=== PATIENT | female | born 1975 | race Caucasian/White ===

== ENCOUNTER → 2017-07-17 | Outpatient (CLI) | payer OTHER ==
--- NOTE | 2017-07-18 07:31 | MM ---
Reason for exam: screening (asymptomatic). Baseline mammogram. History: Patient is nulliparous. Family history of breast cancer in paternal aunt at age 50, breast cancer in paternal aunt at age 40, and breast cancer in grandmother. Took hormonal contraceptives beginning at age 20. Physical Findings: Nurse did not find any significant physical abnormalities on exam. MG 3D Screening Mammo W/Cad Bilateral CC and MLO view(s) were taken. The breast tissue is heterogeneously dense. This may lower the sensitivity of mammography. Finding #1: There is a 14 mm circumscribed round mass in the upper quadrant, posterior position of the left breast. Finding #2: There are typically benign round, linear calcifications in the left breast. Left 18mm oval lesion middle posterior position upper inner quadrant with adjacent 4mm lesion. Right 11mm oval lesion posterior position outer lower quadrant. These results were verbally communicated with the patient and result sheet given to the patient on 07/17/17. ASSESSMENT: Incomplete: need additional imaging evaluation, BI-RAD 0 RECOMMENDATION: Ultrasound of both breasts. (right 12:00, 6:00-9:00) (left 9:00-12:00)
--- NOTE | 2017-07-18 07:52 | USB ---
Reason for exam: additional evaluation requested from abnormal screening. History: Patient is nulliparous. Family history of breast cancer in paternal aunt at age 50, breast cancer in paternal aunt at age 40, and breast cancer in grandmother. Took hormonal contraceptives beginning at age 20. US Breast Workup Limited PATRICIA Right limited breast ultrasound including focal area of concern, retroareolar and axilla demonstrates a 0.6 x 0.6 x 0.2cm oval lesion too small to characterize at 6 o'clock and a 1.0 x 1.2 x 0.5cm oval, mixed, hypoechoic lesion at 7 o'clock for which a biopsy +/- FNA is advised. Left limited breast ultrasound including focal area of concern, retroareolar and axilla demonstrates a 0.5 x 0.9 x 0.5cm oval, mixed lesion too small to characterize at 10 o'clock, a 1.3 x 1.3 x 0.8cm oval, hypoechoic lesion at 10 o'clock for which a biopsy +/- FNA is advised and a 1.1 x 0.6 x 0.8cm taller than wide, irregular, hypoechoic lesion at 9:30-11 o'clock for which a biopsy +/- FNA is advised. These results were verbally communicated with the patient and result sheet given to the patient on 07/17/17. ASSESSMENT: Suspicious, BI-RAD 4 RECOMMENDATION: Ultrasound core biopsy of both breasts. (3 lesions, 2 on the left breast and 1 on the right breast) Called Dr. Narayan with mammographic findings and has scheduled an appointment for the patient for 08/03/17 at 9:[address] Gallegos. PRELIMINARY REPORT CALLED AND FAXED TO DR. GALLEGOS ON 07/18/16.
== END | disposition home or self-care (01) ==
LOC: RADMAMWWP 12:46
PROVIDERS: ATTEND Family Medicine
DX: Z12.31 Encounter for screening mammogram for malignant neoplasm of breast (principal); R92.8 Other abnormal and inconclusive findings on diagnostic imaging of breast; Z80.3 Family history of malignant neoplasm of breast
CPT/HCPCS: 77063; 77067

== ENCOUNTER → 2017-08-03 | Outpatient (CLI) | payer OTHER ==
[2017-08-03 09:24] VITALS: TEMP 98; BMI 45.1
--- NOTE | 2017-08-03 11:04 | P.GSHP ---
History of Present Illness H&P Date: 08/03/17 Chief Complaint: abnormal mammogram and ultrasound Patient is a 42 year old white female status post first mammogram on 07/17/17, this lead to an ultrasound which recommended two biopsies of lesions int he left breast and one int eh right breast. Patient does not feel anything in her breast. No nipple discharge or changes. No pain in her breast. family history: maternal: grandmother lung maternal grandfather: esophagus maternal great grandmother: ovarian paternal: grandmother breast paternal: grandmother ? liver cancer paternal: grandfather colon paternal: aunts (3) 1. bilateral breast, 2. bilateral breast 3. third aunt with breast cancer; youngest at 46; all tested positive for BRCA gene dad: SCC of tongue 6 years clean menarche: 14 : 0, polycystic ovarian disease periods: irregula related to polycystic ovarian disease BCP: yes 5 years Hormones: none social: alcohol: none smoke; none fro three years drugs: none Past surgical histroy: 1. adenoids gallbladder pastmedical histroy: 1DM 2. HTN 3. high cholesterol 4. anxiety ROS: HEENT: none lungs: none heart: none GI: none : polycystic ovarian disease muscskelstal: none neurologic: none endocrine: DM allergies: none - Constitutional Constitutional: Denies chills, Denies fever - EENT Eyes: bilateral as per HPI Ears: deny: decreased hearing, ear discharge, earache, tinnitus - Breasts Breasts: bilateral: as per HPI - Cardiovascular Comment: HTN Cardiovascular: Reports high blood pressure - Respiratory Respiratory: Reports as per HPI, Denies cough - Gastrointestinal Gastrointestinal: Reports as per HPI - Genitourinary (Female) Genitourinary: Reports as per HPI - Musculoskeletal Musculoskeletal: Denies myalgias - Integumentary Integumentary: Denies pruritus, Denies rash - Neurological Neurological: Denies numbness, Denies weakness - Psychiatric Psychiatric: Reports anxiety - Endocrine Endocrine: Denies fatigue, Denies weight change - Hematologic/Lymphatic Comment: no bleeding abnormalities Hematologic/Lymphatic: Reports as per HPI - Allergic/Immunologic Allergic/Immunologic: Reports as per HPI Past Medical History Past Medical History: Diabetes Mellitus, Hypertension History of Any Multi-Drug Resistant Organisms: None Reported Past Surgical History: Adenoidectomy Additional Past Surgical History / Comment(s): ADENIOIDECTOMY X2 28 & 30 YEARS AGO, GALL BLADDER OUT IN 2010, Smoking Status: Former smoker - Past Family History Father Family Medical History: Cancer, Hypertension Additional Family Medical History / Comment(s): OF NOW 6 YEARS IN REMISSION OF ASHLEY, Mother Family Medical History: Diabetes Mellitus Medications and Allergies Allergies Allergy/AdvReac Type Severity Reaction Status Date / Time amoxicillin [From Augmentin] Allergy Rash/Hives Verified 07/17/17 13:32 azithromycin [From Zithromax] Allergy Rash/Hives Verified 07/17/17 13:32 clavulanic acid Allergy Rash/Hives Verified 07/17/17 13:32 [From Augmentin] Surgical - Exam Vital Signs Temp 98 F 08/03/17 09:21 - General obese - Eyes normal ocular movement - ENT no hearing loss, no congestion - Neck no masses, trachea midline - Respiratory normal respiratory effort, clear to auscultation - Cardiovascular Rhythm: regular Heart Sounds: normal: S1, S2 - Abdomen Abdomen: soft, non tender, no guarding, no rigid, no rebound - Integumentary rash under her bilateral breast, apears to be a heat rash - Neurologic no disoriented, no combative - Musculoskeletal normal gait - Psychiatric oriented to time, oriented to person, oriented to place, speech is normal, memory intact right breast: no masses left breast: no masses rash under each breast appear to be heat rash bilateral axilla: no adenopathy of concern Results abnormal mammogram and ultrasound Assessment and Plan Assessment: Imp: 1. abnormal mammogram and ultrasound of bilateral breast 2. polycystic ovarian diseae 3. HTN 4. high cholesterol Plan: 1. consider genetic counselling strong family history of breast cancer 2. bilateral core biopsy 3. follow up in 2 weeks cc: Sylvain
== END ==
LOC: WWCWWP 09:17
PROVIDERS: ATTEND Surgery
DX: N64.89 Other specified disorders of breast (principal); Z53.9 Procedure and treatment not carried out, unspecified reason

== ENCOUNTER → 2017-08-11 | Day surgery (SDC) | payer OTHER ==
[2017-08-11 07:27] VITALS: RESP 16; BMI 44.5
[2017-08-11 09:24] VITALS: BP 117/70; PULSE 112; TEMP 98.1
--- NOTE | 2017-08-11 12:09 | USB ---
EXAMINATION TYPE: US biopsy breast VAD LT, US biopsy breast add'l VAD RT, US biopsy breast add'l VAD LT, MG diagnostic mammo BI wo CAD DATE OF EXAM: 08/11/2017 CLINICAL HISTORY: R92.8 ABN Mammogram. Abnormal ultrasound. TECHNIQUE: Ultrasound guided core biopsy of left breast 2 sites and right breast 1 site with clip placements and follow-up diagnostic 2 view mammogram both breasts. COMPARISON: Prior mammogram and ultrasound July 17, 2017 FINDINGS: The procedure of ultrasound guided core biopsy was explained to the patient. Benefits, alternatives, and risks were discussed. An informed consent was then obtained. The patient was placed in supine positioning for imaging and for the procedure. Preprocedure imaging redemonstrates 10:00 position a irregular hypoechoic 1 cm lesion or area, there is second nearby larger lobulated oval hypoechoic 1.4 cm area 10:00 position left breast. Right breast redemonstrates oval heterogeneous hypoechoic 1.3 cm lesion at 7:00 position. The overlying skin was prepped and draped in usual sterile fashion. Lidocaine buffered with bicarbonate was used as anesthetic into the skin and subcutaneous tissue. Lidocaine with epinephrine is used as anesthetic into the deeper tissue up to area of concern in the bilateral breasts. Under ultrasound guidance, a 12-gauge vacuum assisted biopsy gun device was used to obtain 4 core samples at all sites. A fifth sample was obtained in the right breast. Following this, a biopsy clip was left in lesion at all sites. The patient tolerated the procedure well without any immediate complication. The patient was kept in the radiology department for short stay after the procedure and then discharged home in stable condition. Postprocedure mammogram shows successful deployment of clips in both breasts without mammogram correlate. IMPRESSION: Successful, uncomplicated ultrasound guided core biopsy of areas of concern in the bilateral breasts, full pathology results to follow. Low to intermediate index of suspicion noted at time of procedure for all lesions. The most suspicious smaller irregular lesion left breast did not persist after initial passes or sampling. Pathology Results: Benign A. BREAST, LEFT, SITE A 10:00, ULTRASOUND GUIDED CORE BIOPSY: Proliferative fibrocystic changes including florid usual type ductal hyperplasia, fibrosis and apocrine metaplasia. B. BREAST, LEFT, SITE B 10:00, ULTRASOUND GUIDED CORE BIOPSY: Fibroadenoma. C. BREAST, RIGHT, 7:00, ULTRASOUND GUIDED CORE BIOPSY: Fibroadenoma. Recommendation Follow up ultrasound of both breasts in 6 months. MTDD
== END | disposition home or self-care (01) ==
LOC: RADUSWWP 06:57
PROVIDERS: ATTEND Surgery
DX: D24.2 Benign neoplasm of left breast (principal); D24.1 Benign neoplasm of right breast; N60.82 Other benign mammary dysplasias of left breast; N60.32 Fibrosclerosis of left breast
CPT/HCPCS: 88305; 77066; 19083; 19084 ×2; A4648; J2001

== ENCOUNTER → 2017-08-17 | Outpatient (CLI) | payer OTHER ==
[2017-08-17 15:50] VITALS: BP 136/89; PULSE 117; TEMP 98.5; BMI 44.5
--- NOTE | 2017-08-17 16:09 | P.PN ---
Subjective Progress Note Date: 08/17/17 Patient is status post bilateral ultrasound core biopsy of the breast. She had 2 sites on the left breast and one on the right. All pathology was benign. The patient is seeing a genetic counselor secondary to strong family history of breast cancer. She states she does have some shooting pain in the right breast following the biopsy this appears to be related to the incision site. Upon examination there is no evidence of any infection or ecchymosis at this time, although she stated she had some ecchymosis in the immediate postop period.. She was reassured with respect to the discomfort. Pathology results were discussed with the patient and her family. There was no cancer or precancer identified. Objective - Vital Signs Vital signs: Vital Signs Temp 98.5 F 08/17/17 15:47 Pulse 117 H 08/17/17 15:47 Resp BP 136/89 08/17/17 15:47 Pulse Ox 95 08/17/17 15:47 Intake & Output 08/16/17 08/17/17 08/17/17 18:59 06:59 18:59 Weight 125.191 kg - Constitutional General appearance: Present: obese - Integumentary Integumentary Comment(s): biopsy sites clean and dry - Psychiatric Psychiatric: Present: A&O x's 3, appropriate affect, intact judgment & insight Assessment and Plan Assessment: Impression/plan: 1. Patient status post bilateral core biopsy 2. Strong family history of breast cancer Plan: 1. Bilateral breast ultrasound in 6 months with appointment 2. Patient seeing a genetic counselor Cc: Dr. Narayan
== END ==
LOC: WWCWWP 15:40
PROVIDERS: ATTEND Surgery
DX: Z53.9 Procedure and treatment not carried out, unspecified reason (principal)

== ENCOUNTER → 2018-02-12 | Outpatient (CLI) | payer OTHER ==
--- NOTE | 2018-02-12 12:26 | USB ---
Reason for exam: follow-up at short interval from prior study. History: Patient is nulliparous. Family history of breast cancer in paternal aunt at age 50, breast cancer in paternal aunt at age 40, and breast cancer in grandmother. Benign US biopsy breast VAD LT of the left breast, August 11, 2017. Benign US biopsy breast add'l VAD LT of the left breast, August 11, 2017. Benign US biopsy breast add'l VAD RT of the right breast, August 11, 2017. Took hormonal contraceptives beginning at age 20. Physical Findings: Nurse did not find any significant physical abnormalities on exam. US Breast BILAT Right complete breast ultrasound includes all four quadrants, the retroareolar region and axilla. Finding demonstrates a 0.6 x 0.3 x 0.8cm oval, cystic lesion at 6 o'clock and a 1.0 x 0.5 x 1.1cm oval, solid lesion at 7 o'clock. Left complete breast ultrasound includes all four quadrants, the retroareolar region and axilla. Finding demonstrates a 1.1 x 0.7 x 1.0cm oval, solid lesion at 10 o'clock, a 0.6 x 0.5 x 0.7cm oval, solid lesion at 10 o'clock and a 0.9 x 0.4 x 0.5cm oval, solid lesion at 11 o'clock, change in morphology, re-biopsy recommended. These results were verbally communicated with the patient and result sheet given to the patient on 02/12/18. ASSESSMENT: Suspicious, BI-RAD 4 RECOMMENDATION: Ultrasound core biopsy of the left breast. Called with mammographic findings and has scheduled an appointment for the patient for 02/22/18 at 9:[address] Gallegos. Biopsy scheduled for 02/22/18 at 1 o'clock. PRELIMINARY REPORT CALLED AND FAXED TO DR. GALLEGOS ON 02/12/18.
== END | disposition home or self-care (01) ==
LOC: RADUSWWP 09:34
PROVIDERS: ATTEND Surgery
DX: R92.8 Other abnormal and inconclusive findings on diagnostic imaging of breast (principal)

== ENCOUNTER → 2018-02-15 | Outpatient (CLI) | payer OTHER ==
--- NOTE | 2018-02-15 14:14 | EST ---
EXERCISE STRESS AGE: 42 SEX: F HT: 66" WT: 287 PROTOCOL: Mihai Stress Test STAGE: 2 DURATION OF EXERCISE: 4:30 HEART RATE REST: 112 BLOOD PRESSURE REST: 136/79 MAXIMUM HEART RATE ACHIEVED: 168 MAXIMUM BLOOD PRESSURE: 177/80 85% MPHR: 153 100% MPHR: 180 METS: 6.5 INDICATIONS: Tachy/hypertension. CLINICAL INFORMATION: Baseline rhythm is sinus mechanism, rate of 112, right axis deviation, nonspecific ST-T wave changes. Baseline blood pressure 136/79 mmHg. Patient exercised on Mihai protocol for 4 minutes 30 seconds reaching a peak rate of 168 beats per minute which is equal to 93% maximum predicted heart rate. Peak blood pressure 177/80 mmHg. Test was terminated due to fatigue. There was no chest pain. Electrocardiograph monitoring revealed a 0.[address]-segment depression that resolved at recovery. CONCLUSION: 1. Poor exercise tolerance. 2. Borderline positive electrocardiograph stress testing with 0.[address]-segment depression, upsloping at peak exercise. Those findings could represent a false positive finding. If clinically indicated, imaging stress test will be helpful. MMODL / IJN: [id number] /
== END | disposition home or self-care (01) ==
LOC: RADNMMAIN 08:34
PROVIDERS: ATTEND Family Medicine
DX: R94.39 Abnormal result of other cardiovascular function study (principal); R00.0 Tachycardia, unspecified
CPT/HCPCS: 93017

== ENCOUNTER → 2018-02-22 | Outpatient (CLI) | payer OTHER ==
[2018-02-22 09:07] VITALS: BP 140/81; PULSE 104; RESP 20; TEMP 96.1; BMI 46.3
--- NOTE | 2018-02-22 09:51 | P.PN ---
Subjective Progress Note Date: 02/22/18 Principal diagnosis: abnormal left breast ultrasound She was a 42-year-old white female who is status post bilateral ultrasound core biopsy of the breast proximally 6 months ago. All findings were benign however on a recent repeat bilateral ultrasound there is a change in an area near the 10 to 11 o'clock position of the left breast for which repeat left breast core biopsy the ultrasound was recommended. I reviewed his radiographs with the radiologist and this appears to be the only area of concern at this time. The patient additionally was seen by genetic counselor secondary to her strong family history of cancer which includes: 1. Father: Liver cell carcinoma of the posterior tongue 2. Paternal grandfather: Colon cancer 3. Paternal grandmother: Breast, colon 4. Paternal aunt #1: Breast, uterine 5. Paternal aunt #2: Breast, uterine 6. Paternal aunt #3: Breast, uterine [facility] had genetic testing which was inconclusive and after meeting with a counselor she was told that she could pursue genetic testing but may likely be inconclusive and therefore she opted to be followed conservatively. At this time she has no concerns related to her breast. Objective - Vital Signs Vital signs: Vital Signs Temp 96.1 F L 02/22/18 09:01 Pulse 104 H 02/22/18 09:01 Resp 20 02/22/18 09:01 BP 140/81 02/22/18 09:01 Pulse Ox 96 02/22/18 09:01 Intake & Output 02/21/18 02/22/18 02/22/18 18:59 06:59 18:59 Weight 130.181 kg - Exam BMI 46.3 - Constitutional General appearance: Present: cooperative, obese - EENT Eyes: Present: EOMI ENT: Present: hearing grossly normal - Neck Neck: Present: normal ROM - Respiratory Respiratory: bilateral: CTA - Cardiovascular Rhythm: regular Heart sounds: normal: S1, S2 - Gastrointestinal General gastrointestinal: Present: soft - Integumentary Integumentary Comment(s): Breast Exam: Right breast examination: No dominant masses or nodules of concern and multi- positional exam Right axilla: No adenopathy of concern {: Multiple positional exam no dominant masses or nodules of concern Left axilla: No adenopathy of concern - Musculoskeletal Musculoskeletal: Present: gait normal - Psychiatric Psychiatric: Present: A&O x's 3, appropriate affect, intact judgment & insight - Labs Labs: Ultrasound reviewed with radiologist Assessment and Plan Assessment: Impression/plan: 1. Ultrasound abnormality left breast for which ultrasound core biopsy recommended 2. Ultrasound right breast stable status post core biopsy revealing benign breast tissue 3. Strong family history of cancer has seen genetic counselor been followed conservatively 4. Follow up next week after biopsy for results CC: Sylvain [facility] Leena Allen nurse practitioner
== END | disposition home or self-care (01) ==
LOC: WWCWWP 08:44
PROVIDERS: ATTEND Surgery
DX: Z53.9 Procedure and treatment not carried out, unspecified reason (principal)

== ENCOUNTER → 2018-02-22 | Day surgery (SDC) | payer OTHER ==
[2018-02-22 12:34] VITALS: RESP 16; TEMP 97.8; BMI 46.3
[2018-02-22 14:29] VITALS: BP 110/68; PULSE 106
--- NOTE | 2018-02-22 14:32 | USB ---
EXAMINATION TYPE: US biopsy breast VAD LT, MG diagnostic mammo LT wo CAD DATE OF EXAM: 02/22/2018 CLINICAL HISTORY: R92.8 ABNORMAL MAMMOGRAM. Recent abnormal ultrasound TECHNIQUE: Ultrasound guided core biopsy of left breast with clip placement and follow-up diagnostic two-view left breast mammogram. COMPARISON: Bilateral complete breast ultrasound February 12, 2018 and older studies FINDINGS: The procedure of ultrasound guided core biopsy was explained to the patient. Benefits, alternatives, and risks were discussed. An informed consent was then obtained. The patient was placed in supine positioning for imaging and for the procedure. Preprocedure imaging redemonstrates a hypoechoic 7 mm lesion 1:00 position zone C of the left breast slight shadowing and slightly irregular margins. The overlying skin was prepped and draped in usual sterile fashion. Lidocaine buffered with bicarbonate was used as anesthetic into the skin and subcutaneous tissue. Lidocaine with epinephrine is used as anesthetic into the deeper tissue up to area of concern in the left breast. Under ultrasound guidance, a 12-gauge vacuum assisted biopsy gun device was used to obtain 6 core samples. Following this, a biopsy clip was left in lesion. The patient tolerated the procedure well without any immediate complication. The patient was kept in the radiology department for short stay after the procedure and then discharged home in stable condition. Postprocedure mammogram shows successful deployment of clip cranial to prior clips 10:00 position. IMPRESSION: Successful, uncomplicated ultrasound guided core biopsy of area of concern in the left breast, full pathology results to follow. Intermediate index of suspicion noted at time of procedure. Pathology Results: Benign LEFT BREAST LESION, NEEDLE CORE BIOPSIES: Fibroadenoma. Recommendation Follow up ultrasound of the left breast in 6 months. MANINDER
== END ==
LOC: RADUSWWP 11:53
PROVIDERS: ATTEND Surgery
DX: D24.2 Benign neoplasm of left breast (principal)
CPT/HCPCS: 88305; 77065; 19083; A4648; J2001

== ENCOUNTER → 2018-03-16 | Outpatient (CLI) | payer OTHER ==
[2018-03-16 15:10] VITALS: BP 131/77; PULSE 100; RESP 20; TEMP 97.1; BMI 46.1
--- NOTE | 2018-03-16 15:28 | P.PN ---
Subjective Progress Note Date: 03/16/18 Principal diagnosis: Status post ultrasound core biopsy of the left breast Lissa is a 42-year-old white female status post ultrasound core biopsy of the left breast on [id number]. Pathology revealed a fibroadenoma. The patient has no complaints related to the biopsy procedure. Objective - Vital Signs Vital signs: Vital Signs Temp 97.1 F L 03/16/18 15:04 Pulse 100 03/16/18 15:04 Resp 20 03/16/18 15:04 BP 131/77 03/16/18 15:04 Pulse Ox 99 03/16/18 15:04 Intake & Output 03/15/18 03/16/18 03/16/18 18:59 06:59 18:59 Weight 129.727 kg - Constitutional General appearance: Present: obese - EENT Eyes: Present: EOMI ENT: Present: hearing grossly normal - Neck Neck: Present: normal ROM - Respiratory Respiratory: bilateral: CTA - Cardiovascular Rhythm: regular Heart sounds: normal: S1, S2 - Integumentary Integumentary Comment(s): Ultrasound core puncture site clean and dry - Psychiatric Psychiatric: Present: A&O x's 3, appropriate affect, intact judgment & insight Assessment and Plan Assessment: Impression: 1. Patient status post left breast ultrasound core biopsy/consistent with fibroadenoma 2. Strong family history of cancer patient has seen a genetic counselor and opted for conservative follow-up 3. Bilateral breast mammogram in July 2018, left breast ultrasound July 2018 4. Follow-up after mammogram and ultrasound of the breast Plan: Plan: 1. Conservative management of breast with right lateral mammogram and left breast ultrasound in July 2018 with appointment CC: Dr. Narayan
== END | disposition home or self-care (01) ==
LOC: WWCWWP 14:54
PROVIDERS: ATTEND Surgery
DX: Z53.9 Procedure and treatment not carried out, unspecified reason (principal)

== ENCOUNTER → 2018-08-27 | Outpatient (CLI) | payer OTHER ==
--- NOTE | 2018-08-27 09:40 | MM ---
Reason for exam: follow-up at short interval from prior study. Last mammogram was performed 6 months ago. History: Patient is nulliparous. Family history of breast cancer in paternal aunt at age 50, breast cancer in paternal aunt at age 40, and breast cancer in grandmother. Benign US biopsy breast VAD LT of the left breast, February 22, 2018. Benign US biopsy breast VAD LT of the left breast, August 11, 2017. Benign US biopsy breast add'l VAD LT of the left breast, August 11, 2017. Benign US biopsy breast add'l VAD RT of the right breast, August 11, 2017. Took hormonal contraceptives beginning at age 20. Physical Findings: Nurse did not find any significant physical abnormalities on exam. MG 3D Diag Mammo W/Cad PATRICIA Bilateral CC, MLO, and XCCL view(s) were taken. Prior study comparison: February 22, 2018, left breast MG diagnostic mammo LT wo CAD. August 11, 2017, bilateral MG diagnostic mona BI wo CAD. The breast tissue is heterogeneously dense. This may lower the sensitivity of mammography. Previous mammotome biopsy in the right and left breast x 3. There is chronic nodularity bilaterally. These results were verbally communicated with the patient and result sheet given to the patient on 08/27/18. ASSESSMENT: Incomplete: need additional imaging evaluation, BI-RAD 0 RECOMMENDATION: Ultrasound of the left breast. (as ordered)
--- NOTE | 2018-08-27 09:42 | USB ---
Reason for exam: follow-up at short interval from prior study. History: Patient is nulliparous. Family history of breast cancer in paternal aunt at age 50, breast cancer in paternal aunt at age 40, and breast cancer in grandmother. Benign US biopsy breast VAD LT of the left breast, February 22, 2018. Benign US biopsy breast VAD LT of the left breast, August 11, 2017. Benign US biopsy breast add'l VAD LT of the left breast, August 11, 2017. Benign US biopsy breast add'l VAD RT of the right breast, August 11, 2017. Took hormonal contraceptives beginning at age 20. US Breast LT Left complete breast ultrasound includes all four quadrants, the retroareolar region and axilla. Finding demonstrates a 0.6 x 0.4 x 0.6cm oval, solid lesion at 10 o'clock biopsy proved fibroadenoma, a 1.2 x 0.7 x 1.0cm oval, solid lesion at 10 o'clock biopsy proved fibroadenoma and a 0.6 x 0.6 x 0.5cm oval, solid lesion at 11 o'clock circumscribed, seen on 08/11/17. These results were verbally communicated with the patient and result sheet given to the patient on 08/27/18. ASSESSMENT: Probably benign, BI-RAD 3 RECOMMENDATION: Follow-up diagnostic mammogram of both breasts in 1 year.
== END | disposition home or self-care (01) ==
LOC: RADMAMWWP 08:09
PROVIDERS: ATTEND Surgery
DX: R92.8 Other abnormal and inconclusive findings on diagnostic imaging of breast (principal)
CPT/HCPCS: 77062; 77066

== ENCOUNTER → 2019-10-15 | Outpatient (CLI) | payer OTHER ==
--- NOTE | 2019-10-15 13:51 | MM ---
Reason for exam: additional evaluation requested from prior study. Last mammogram was performed 1 year and 2 months ago. History: Patient is nulliparous. Family history of breast cancer in paternal aunt at age 50, breast cancer in paternal aunt at age 40, and breast cancer in grandmother. Benign US biopsy breast VAD LT of the left breast, February 22, 2018. Benign US biopsy breast VAD LT of the left breast, August 11, 2017. Benign US biopsy breast add'l VAD LT of the left breast, August 11, 2017. Benign US biopsy breast add'l VAD RT of the right breast, August 11, 2017. Took hormonal contraceptives beginning at age 20. Physical Findings: Nurse did not find any significant physical abnormalities on exam. MG 3D Diag Mammo W/Cad PATRICIA Bilateral CC and MLO view(s) were taken. Prior study comparison: August 27, 2018, bilateral MG 3d diag mammo w/cad PATRICIA. February 22, 2018, left breast MG diagnostic mammo LT wo CAD. The breast tissue is heterogeneously dense. This may lower the sensitivity of mammography. There are multiple previous mammotome biopsies bilaterally. There is chronic nodularity in the left breast. There is no dominant lesion. No significant new findings when compared with previous films. These results were verbally communicated with the patient and result sheet given to the patient on 10/15/19. ASSESSMENT: Benign, BI-RAD 2 RECOMMENDATION: Routine screening mammogram of both breasts in 1 year.
== END | disposition home or self-care (01) ==
LOC: RADMAMWWP 12:56
PROVIDERS: ATTEND Family Medicine
DX: R92.8 Other abnormal and inconclusive findings on diagnostic imaging of breast (principal)
CPT/HCPCS: 77062; 77066

== ENCOUNTER 2021-03-17 00:49 | Observation (INO) | payer OTHER ==
--- NOTE | 2021-03-17 01:17 | ED ---
Chest Pain HPI - General Chief Complaint: Chest Pain Stated Complaint: shaky, chest pain Time Seen by Provider: 03/17/21 00:57 Source: patient Mode of arrival: ambulatory Limitations: no limitations - History of Present Illness MD Complaint: chest pain Onset/Timin -: hour(s) Onset: during rest Pain Location: substernal Pain Radiation: none Severity: moderate Quality: aching, other (burning) Consistency: intermittent Improves With: nothing Worsens With: nothing Treatments Prior to Arrival: none - Related Data Home Medications Medication Instructions Recorded Confirmed Citalopram Hydrobromide [CeleXA] 40 unit PO QAM 08/03/17 03/16/18 Atorvastatin [Lipitor] 20 mg PO QAM 08/08/17 03/16/18 Fenofibrate 160 mg PO QAM 08/08/17 03/16/18 Insulin Degludec [Tresiba 58 units SQ DAILY 08/08/17 03/16/18 Flextouch U-100] Lisinopril-Hctz 10-12.5 mg 1 tab PO BID 08/08/17 03/16/18 [Zestoretic 10-12.5] Metoprolol Tartrate [Lopressor] 25 mg PO QAM 02/13/18 03/16/18 Pioglitazone [Actos] 15 mg PO BID 02/13/18 03/16/18 Allergies Allergy/AdvReac Type Severity Reaction Status Date / Time amoxicillin [From Augmentin] Allergy Rash/Hives Verified 03/17/21 00:54 azithromycin [From Zithromax] Allergy Rash/Hives Verified 03/17/21 00:54 clavulanic acid Allergy Rash/Hives Verified 03/17/21 00:54 [From Augmentin] Review of Systems ROS Statement: Those systems with pertinent positive or pertinent negative responses have been documented in the HPI. ROS Other: All systems not noted in ROS Statement are negative. Constitutional: Denies: fever, chills Respiratory: Denies: cough, dyspnea Cardiovascular: Reports: chest pain. Denies: palpitations, orthopnea, syncope Gastrointestinal: Denies: abdominal pain, nausea, vomiting, diarrhea Genitourinary: Denies: dysuria, hematuria Musculoskeletal: Denies: back pain Skin: Denies: rash Neurological: Denies: headache, weakness, numbness EKG Findings - EKG Results: EKG: interpreted by CHARLES, sinus rhythm, normal axis, normal QRS EKG shows: tachycardia - Blocks, [place], Hypertrophy, ST Abn: Repolarization changes or abnormalities: nonspecific abnormality, ST segment, and/or T wave Past Medical History Past Medical History: Diabetes Mellitus, Hyperlipidemia, Hypertension Additional Past Medical History / Comment(s): PCOS History of Any Multi-Drug Resistant Organisms: None Reported Past Surgical History: Adenoidectomy, Cholecystectomy Additional Past Surgical History / Comment(s): bilateral breast biopsy august 11, 2017 x 3 sites-all benign. Past Anesthesia/Blood Transfusion Reactions: No Reported Reaction Past Psychological History: Anxiety Smoking Status: Former smoker Past Alcohol Use History: None Reported Past Drug Use History: None Reported - Past Family History Father Family Medical History: Cancer, Hypertension Additional Family Medical History / Comment(s): OF NOW 6 YEARS IN REMISSION OF TOUNGE, Mother Family Medical History: Diabetes Mellitus General Exam Limitations: no limitations General appearance: alert, in no apparent distress Head exam: Present: atraumatic, normocephalic Eye exam: Present: normal appearance. Absent: scleral icterus, conjunctival injection Neck exam: Present: normal inspection Respiratory exam: Present: normal lung sounds bilaterally. Absent: respiratory distress, wheezes, rales, rhonchi, stridor Cardiovascular Exam: Present: regular rate, normal rhythm, normal heart sounds. Absent: systolic murmur, diastolic murmur, rubs, gallop GI/Abdominal exam: Present: soft. Absent: distended, tenderness, guarding, rebound, rigid, mass Extremities exam: Present: normal inspection, normal capillary refill. Absent: pedal edema, calf tenderness Back exam: Present: normal inspection. Absent: CVA tenderness (R), CVA tenderness (L) Neurological exam: Present: alert Skin exam: Present: warm, dry, intact, normal color. Absent: rash Course Vital Signs 03/17/21 03/17/21 00:52 01:16 Temperature 98.1 F Pulse Rate 118 H 114 H Respiratory 20 18 Rate Blood Pressure 155/84 O2 Sat by Pulse 95 98 Oximetry Disposition Referrals: Seymour Nixon MD [Primary Care Provider] - 1-2 days
[2021-03-17] MEDS ORDERED: ASPIRIN 81 MG PO STA (01:27)
[2021-03-17] MEDS ORDERED: NITROGLYCERIN SL TABS 0.4 MG TAB SUBLINGUAL STA (01:27)
[2021-03-17 01:57] LABS: Basophils % (A) 1 %; Eosinophils # (A) 0.1 k/uL (0-0.7); Eosinophils % (A) 2 %; HCT 43.4 % (34.0-46.0); HGB 14.9 gm/dL (11.4-16.0); Lymphocytes # (A) 1.2 k/uL (1.0-4.8); Lymphocytes % (A) 18 %; MCH 29.8 pg (25.0-35.0); MCHC 34.3 g/dL (31.0-37.0); MCV 86.9 fL (80.0-100.0); Mean Platelet Volume 7.5; Monocytes # (A) 0.5 k/uL (0-1.0); Monocytes % (A) 7 %; Neutrophils # (A) 4.8 k/uL (1.3-7.7); Neutrophils % (A) 71 %; Platelet Count 253 k/uL (150-450); RBC 4.99 m/uL (3.80-5.40); RDW 12.9 % (11.5-15.5); WBC 6.8 k/uL (3.8-10.6)
--- NOTE | 2021-03-17 01:57 | XR ---
EXAMINATION TYPE: XR chest 2V DATE OF EXAM: 03/17/2021 COMPARISON: NONE HISTORY: Chest pain TECHNIQUE: 2 views FINDINGS: Heart and mediastinum are normal. Lungs are clear. Diaphragm is normal. Bony thorax is inta ct. IMPRESSION: Normal chest.
[2021-03-17 02:02] LABS: Partial Thromboplastin Time 22.2 sec (22.0-30.0); Prothrombin Time 10.6 sec (9.0-12.0)
[2021-03-17 02:05] LABS: ALT 24 U/L (4-34); AST 39 U/L (14-36); African American GFR (CKD) >90 (>60 ml/min/1.73 sqM); Albumin 3.9 g/dL (3.5-5.0); Alkaline Phosphatase 98 U/L (38-126); Amylase 56 U/L (30-110); Anion Gap 11 mmol/L; Blood Urea Nitrogen 14 mg/dL (7-17); Calcium 9.4 mg/dL (8.4-10.2); Carbon Dioxide 24 mmol/L (22-30); Chloride 98 mmol/L (98-107); Glucose 346 mg/dL (74-99); Lipase 420 U/L (23-300); Magnesium 1.4 mg/dL (1.6-2.3); Non-African American GFR(CKD) >90 (>60 ml/min/1.73 sqM); Potassium 4.2 mmol/L (3.5-5.1); Sodium 133 mmol/L (137-145); Total Bilirubin 0.9 mg/dL (0.2-1.3); Total Protein 6.9 g/dL (6.3-8.2)
[2021-03-17] MEDS ORDERED: SODIUM CHLORIDE 0.9% 1,000 ML IV ONE (03:01)
[2021-03-17] MEDS ORDERED: NITROGLYCERIN SL TABS 0.4 MG TAB SUBLINGUAL PRN (04:47)
[2021-03-17 07:43] VITALS: TEMP 98.4
[2021-03-17 07:54] LABS: Glucose,Whole Blood 254 mg/dL (75-99)
[2021-03-17 08:30] VITALS: RESP 17
[2021-03-17] MEDS ORDERED: ATORVASTATIN 20 MG TAB PO SCH (09:00)
[2021-03-17] MEDS ORDERED: CITALOPRAM HYDROBROMIDE 20 MG TAB PO SCH (09:00)
[2021-03-17] MEDS ORDERED: PIOGLITAZONE 15 MG TAB PO SCH (09:00)
[2021-03-17] MEDS ORDERED: FENOFIBRATE 160 MG TAB PO SCH (09:00)
[2021-03-17] MEDS ORDERED: METOPROLOL SUCCINATE (ER) 25 MG TAB.ER.24H PO SCH (09:00)
[2021-03-17] MEDS ORDERED: NON FORMULARY DRUG (Fluoxetine Hcl [Prozac] 40 MG Capsule) PO SCH (09:00)
[2021-03-17] MEDS ORDERED: INSULIN DETEMIR (LEVEMIR) 100 UNIT/ML SYR SQ SCH (09:00)
[2021-03-17] MEDS ORDERED: METOPROLOL TARTRATE 25 MG TAB PO SCH (09:00)
[2021-03-17] MEDS ORDERED: LISINOPRIL-HCTZ 10-12.5 MG 1 EACH TAB PO SCH (09:00)
--- NOTE | 2021-03-17 09:54 | P.CRDCN ---
History of Present Illness History of present illness: HISTORY OF PRESENTING ILLNESS Patient is a pleasant 45-year-old female with a history of diabetes mellitus type 2, hypertension, hyperlipidemia, obesity who presents secondary chest pain. She states she had been in her normal state of health up until yesterday when she started having diarrhea and thought it may have been something she ate. The diarrhea improved and she didn't have any abdominal pain however a few hours later she developed a substernal pain from her neck down to her epigastric region which lasted for approximately 2 or 3 hours. She denies any associated nausea, diaphoresis or shortness breath. She did state at felt somewhat like she cannot take a deep breath and denies any association with event or reproducibility. She therefore decided come to emergency department however it had eased up and currently denies any further pain. She denies any further diarrhea. Blood work shows white blood cell count 6.8, hemoglobin 14.9, lipase 420, amylase 56, d-dimer 0.89. Chest x-ray was performed which showed no acute processes. CTA was performed however awaiting interpretation. KG shows normal sinus rhythm, sinus tachycardia. On monitor she has remained sinus tachycardia with heart rates in the 110s. REVIEW OF SYSTEMS At the time of my exam: CONSTITUTIONAL: Denies fever or chills. CARDIOVASCULAR: + chest pain, no shortness of breath, orthopnea, PND or palpitations. RESPIRATORY: Denies cough. GASTROINTESTINAL: Denies abdominal pain, diarrhea, constipation, nausea or vomiting. MUSCULOSKELETAL: Denies myalgias. NEUROLOGIC: Denies numbness, tingling or weakness. ENDOCRINE: Denies fatigue, weight change, polydipsia or polyurina. GENITOURINARY: Denies burning, hematuria or urgency with micturation. HEMATOLOGIC: Denies history of anemia or bleeding. PHYSICAL EXAMINATION Vital signs reviewed. CONSTITUTIONAL: No apparent distress. HEENT: Head is normocephalic. Pupils are equal, round. Sclerae anicteric. Mucous membranes of the mouth are moist. No JVD. No carotid bruit. CHEST EXAMINATION: Lungs are clear to auscultation. No chest wall tenderness is noted on palpation or with deep breathing. HEART EXAMINATION: Tachy, Regular rate and rhythm. S1, S2 heard. No murmurs, gallops or rub. ABDOMEN: Soft, nontender. Positive bowel sounds. EXTREMITIES: 2+ peripheral pulses, no lower extremity edema and no calf tenderness. NEUROLOGIC EXAMINATION: Patient is awake, alert and oriented x3. ASSESSMENT 1. Atypical chest pain, troponin is normal 3, acute coronary syndrome ruled out 2. Mildly elevated d-dimer, CTA pending 3. Diabetes mellitus type 2 4. Hypertension 5. Hyperlipidemia 6. Sinus tachycardia 7. Recent diarrhea, appears improved PLAN She is chest pain has overall improved however does have numerous risk factors. We will check a echocardiogram as well as stress echo to further evaluate as long as CTA shows no PE. She does have sinus tachycardia which may be related to anxiety however appears that been fairly persistent despite IV fluids. Does not appear dehydrated on exam. We will check a thyroid to ensure no hype rthyroid state. If echo and stress test unrevealing patient may be discharged home with outpatient follow-up. Past Medical History Past Medical History: Diabetes Mellitus, Hyperlipidemia, Hypertension Additional Past Medical History / Comment(s): PCOS History of Any Multi-Drug Resistant Organisms: None Reported Past Surgical History: Adenoidectomy, Cholecystectomy Additional Past Surgical History / Comment(s): bilateral breast biopsy august 11, 2017 x 3 sites-all benign. Past Anesthesia/Blood Transfusion Reactions: No Reported Reaction Past Psychological History: Anxiety Smoking Status: Former smoker Past Alcohol Use History: None Reported Past Drug Use History: None Reported - Past Family History Father Family Medical History: Cancer, Hypertension Additional Family Medical History / Comment(s): OF NOW 6 YEARS IN REMISSION OF TOUNGE, Mother Family Medical History: Diabetes Mellitus Medications and Allergies Home Medications Medication Instructions Recorded Confirmed Type Atorvastatin [Lipitor] 20 mg PO QAM 08/08/17 03/17/21 History Insulin Degludec [Tresiba 60 units SQ W/SUPPER 08/08/17 03/17/21 History Flextouch U-100] Lisinopril-Hctz 10-12.5 mg 1 tab PO BID 08/08/17 03/17/21 History [Zestoretic 10-12.5] FLUoxetine HCL [PROzac] 40 mg PO QAM 03/17/21 03/17/21 History Metoprolol Succinate (ER) [Toprol 25 mg PO QAM 03/17/21 03/17/21 History Xl] Allergies Allergy/AdvReac Type Severity Reaction Status Date / Time amoxicillin [From Augmentin] Allergy Rash/Hives Verified 03/17/21 06:43 azithromycin [From Zithromax] Allergy Rash/Hives Verified 03/17/21 06:43 clavulanic acid Allergy Rash/Hives Verified 03/17/21 06:43 [From Augmentin] Physical Exam Vitals: Vital Signs Temp Pulse Pulse Resp BP BP Pulse Ox 03/17/21 08:29 114 H 17 159/88 97 03/17/21 07:39 98.4 F 112 H 18 161/102 97 03/17/21 06:26 110 H 18 157/89 98 03/17/21 05:15 104 H 18 172/89 97 03/17/21 03:20 107 H 18 156/97 96 03/17/21 01:16 114 H 18 98 03/17/21 00:52 98.1 F 118 H 20 155/84 95 Intake and Output 03/16/21 03/17/21 03/17/21 22:59 06:59 14:59 Other: Weight 124.284 kg 124.284 kg Results 03/17/21 01:42 03/17/21 01:42 Cardiac Enzymes 03/17/21 03/17/21 03/17/21 Range/Units 01:42 01:42 05:29 AST 39 H (14-36) U/L Troponin I <0.012 <0.012 (0.000-0.034) ng/mL 03/17/21 Range/Units 07:35 AST (14-36) U/L Troponin I <0.012 (0.000-0.034) ng/mL Coagulation 03/17/21 Range/Units 01:42 PT 10.6 (9.0-12.0) sec APTT 22.2 (22.0-30.0) sec CBC 03/17/21 Range/Units 01:42 WBC 6.8 (3.8-10.6) k/uL RBC 4.99 (3.80-5.40) m/uL Hgb 14.9 (11.4-16.0) gm/dL Hct 43.4 (34.0-46.0) % Plt Count 253 (150-450) k/uL Comprehensive Metabolic Panel 03/17/21 Range/Units 01:42 Sodium 133 L (137-145) mmol/L Potassium 4.2 (3.5-5.1) mmol/L Chloride 98 (98-107) mmol/L Carbon Dioxide 24 (22-30) mmol/L BUN 14 (7-17) mg/dL Creatinine 0.38 L (0.52-1.04) mg/dL Glucose 346 H (74-99) mg/dL Calcium 9.4 (8.4-10.2) mg/dL AST 39 H (14-36) U/L ALT 24 (4-34) U/L Alkaline Phosphatase 98 (38-126) U/L Total Protein 6.9 (6.3-8.2) g/dL Albumin 3.9 (3.5-5.0) g/dL Current Medications Generic Name Dose Route Start Last Admin Trade Name Freq PRN Reason Stop Dose Admin Atorvastatin Calcium 20 mg 03/17/21 09:00 03/17/21 09:03 Atorvastatin 20 Mg Tab PO 20 mg QAM PARVIZ Administration Fenofibrate 160 mg 03/17/21 09:00 03/17/21 09:03 Fenofibrate 160 Mg Tab PO 160 mg QAM PARVIZ Administration Fluoxetine HCl 40 mg 03/18/21 09:00 Fluoxetine Hcl 20 Mg Cap PO DAILY PARVIZ Lisinopril/HCTZ 1 each 03/17/21 09:00 03/17/21 09:03 Lisinopril-Hctz 10-12.5 Mg 1 Each Tab PO 1 each BID PARVIZ Administration Insulin Detemir 58 unit 03/17/21 09:00 03/17/21 09:03 Insulin Detemir (Levemir) 100 Unit/Ml Syr SQ 58 unit DAILY PARVIZ Administration Metoprolol Succinate 25 mg 03/17/21 09:00 03/17/21 09:02 Metoprolol Succinate (Er) 25 Mg Tab.Er.24h PO 25 mg QAM PARVIZ Administration Nitroglycerin 0.4 mg 03/17/21 04:47 Nitroglycerin Sl Tabs 0.4 Mg Tab SUBLINGUAL Q5M PRN Chest Pain Intake and Output 03/16/21 03/17/21 03/17/21 22:59 06:59 14:59 Other: Weight 124.284 kg 124.284 kg Patient Weight 03/18/21 06:59 Weight 124.284 kg 03/17/21 01:42 03/17/21 01:42
--- NOTE | 2021-03-17 10:01 | CT ---
CT CHEST FOR PULMONARY EMBOLISM. EXAMINATION TYPE: CT chest angio for PE DATE OF EXAM: 03/17/2021 INDICATION: Left sided to mid chest pain. CT DLP: 687.7 mGycm, Automated exposure control for dose reduction was used. CONTRAST: Patient injected with 100 mL of Isovue 370. COMPARISON: None TECHNIQUE: CT of the chest is performed on a spiral scan at 2 mm thick sections. Study is performed with intravenous contrast timed for evaluation for pulmonary embolism. This will limit additional po rtions of the evaluation. 3-D MIP images reconstructed by the technologist are reviewed on the compu ter in the coronal and sagittal planes. FINDINGS: No persistent filling defects are evident to suggest an acute pulmonary embolism. No mediastinal or hilar adenopathy enlarged by CT criteria is evident. The ascending aorta diameter at the level of the main pulmonary artery is 3.6 cm. The main pulmonary artery diameter at the bifur cation is 3.0 cm. Lung windows are clear. Limited CT section through the upper abdomen. There is a vague area of enhancement within the right m id lobe liver measuring 2.7 cm. This is not clearly apparent on the MRI liver of 08/19/2010. Consider u ltrasound to evaluate for hemangioma. Other etiologies are not excluded this time. IMPRESSIONS: 1. No acute pulmonary embolism. 2. No acute pulmonary process. 3. There may be a 2.7 cm hepatic hemangioma present. Ultrasound recommended for additional workup.
[2021-03-17] MEDS ORDERED: Magnesium Replacement Protocol 1 EACH MISC MISCELLANE PRN (10:48)
[2021-03-17] MEDS: MAGNESIUM SULFATE-D5W PMX 1 GM in DEXTROSE/WATER 1 100ML.BAG IVPB SCH ×3 (11:21→14:13)
[2021-03-17 11:22] LABS: Glucose,Whole Blood 259 mg/dL (75-99)
[2021-03-17] MEDS: INSULIN ASPART (NovoLOG) 100 UNIT/ML VIAL SQ SCH ×2 (11:22→17:27)
--- NOTE | 2021-03-17 11:44 | P.STRESS ---
- Stress Test Note Stress Test Results/Findings: Exam Performed: stress echo exercise Exam Date: 03/17/21 Reason for Exam: CP Height: 5 ft 6 in Weight: 124.28 kg Protocol: STRESS ECHO EXERCISE Stage: 2 Duration of Exercise: 4:27 Resting Heart Rate: 112 Resting Blood Pressure: 145/87 Maximum Achieved Heart Rate: 161 Maximum Achieved Blood Pressure: 201/73 85% PMHR: 150 100% PMHR: 177 METS: 6.2 Technologist Comment: Stress Test Results/Findings: Patient underwent exercise stress echo with a Mihai protocol treadmill stress test. Patient exercised into Stage 2 for a total of 4 minutes and 27 seconds reaching a total of 6.2 METS. Patient's maximum heart rate was 161 which represented 91 % age-predicted maximum heart rate. Stress EKG portion: At baseline patient's EKG showed sinus tachycardia with a heart rate of 112 bpm, normal axis, minimal 0.[address] depressions in 2-3 and aVF.. At peak exercise, EKG showed no significant change from baseline. Stress echo portion: 2-D echocardiogram was performed in the parasternal long, personal short, apical 2 and apical four-chamber views at rest, peak exercise and in recovery. At [facility], echocardiogram showed left ventricular ejection fraction 60% without wall motion abnormalities. With peak exercise, echocardiogram shows improvement in left ventricular ejection fraction, increase contractility, decrease in left ventricular end systolic dimension without wall motion abnormalities consistent with a normal response to exercise. Conclusions: 1. Nondiagnostic EKG portion secondary to mild baseline abnormalities. 2. Normal echo response to exercise without evidence of inducible ischemia. 3. Poor exercise capacity. 4. Normal EF 60%.
--- NOTE | 2021-03-17 13:00 | ECHOF ---
Referral Reason:re: LV function MEASUREMENTS -------- HEIGHT: 167.6 cm WEIGHT: 124.3 kg BP: 159/88 RVIDd: 3.6 cm (< 3.3) IVSd: 1.3 cm (0.6 - 1.1) LVIDd: 4.7 cm (3.9 - 5.3) LVPWd: 1.7 cm (0.6 - 1.1) IVSs: 1.9 cm LVIDs: 3.4 cm LVPWs: 1.7 cm LAESV Index (A-L): 25.98 ml/m Ao Diam: 2.9 cm (2.0 - 3.7) AV Cusp: 1.9 cm (1.5 - 2.6) LA Diam: 3.8 cm (2.7 - 3.8) MV EXCURSION: 16.865 mm (> 18.000) MV EF SLOPE: 96 mm/s (70 - 150) EPSS: 0.6 cm MV E Andrew: 0.81 m/s MV DecT: 111 ms MV A Andrew: 1.23 m/s MV E/A Ratio: 0.66 RAP: 5.00 mmHg RVSP: 38.07 mmHg FINDINGS -------- Sinus rhythm. This was a technically adequate study. The left ventricular size is normal. There is mild concentric left ventricular hypertrophy. Overa ll left ventricular systolic function is normal with, an EF between 55 - 60 %. The right ventricle is mildly enlarged. Normal LA size by volume 22+/-6 ml/m2. The right atrial size is normal. Interatrial and interventricular septum intact. There is no evidence of aortic regurgitation. There is no evidence of aortic stenosis. Mild mitral regurgitation is present. Mild tricuspid regurgitation present. There is mild pulmonary hypertension. The right ventricular systolic pressure, as measured by Doppler, is 38.07mmHg. There is no pulmonic regurgitation present. The aortic root size is normal. IVC Not well visulized. There is no pericardial effusion. CONCLUSIONS -------- 1. The left ventricular size is normal. 2. There is mild concentric left ventricular hypertrophy. 3. Overall left ventricular systolic function is normal with, an EF between 55 - 60 %. 4. The right ventricle is mildly enlarged. 5. Mild mitral regurgitation is present. 6. Mild tricuspid regurgitation present. 7. There is mild pulmonary hypertension. 8. The right ventricular systolic pressure, as measured by Doppler, is 38.07mmHg. BROADBAND ENGINEER: Prachi Arias RDCS
[2021-03-17 15:21] VITALS: BP 127/83; PULSE 102
[2021-03-17 17:21] LABS: Glucose,Whole Blood 210 mg/dL (75-99)
[2021-03-18] MEDS ORDERED: FLUoxetine HCL 20 MG CAP PO SCH (09:00)
--- NOTE | 2021-03-19 08:31 | ECHOS ---
Stress Test Results/Findings: Exam Performed: stress echo exercise Exam Date: 03/17/21 Reason for Exam: CP Height: 5 ft 6 in Weight: 124.28 kg Protocol: STRESS ECHO EXERCISE Stage: 2 Duration of Exercise: 4:27 Resting Heart Rate: 112 Resting Blood Pressure: 145/87 Maximum Achieved Heart Rate: 161 Maximum Achieved Blood Pressure: 201/73 85% PMHR: 150 100% PMHR: 177 METS: 6.2 Technologist Comment: Stress Test Results/Findings: Patient underwent exercise stress echo with a Mihai protocol treadmill stress test. Patient exercised into Stage 2 for a total of 4 minutes and 27 seconds reaching a total of 6.2 METS. Patient's maximum heart rate was 161 which represented 91 % age-predicted maximum heart rate. Stress EKG portion: At baseline patient's EKG showed sinus tachycardia with a heart rate of 112 bpm, normal axis, minimal 0.[address] depressions in 2-3 and aVF.. At peak exercise, EKG showed no significant change from baseline. Stress echo portion: 2-D echocardiogram was performed in the parasternal long, personal short, apical 2 and apical four-chamber views at rest, peak exercise and in recovery. At baseline, echocardiogram showed left ventricular ejection fraction 60% without wall motion abnormalities. With peak exercise, echocardiogram shows improvement in left ventricular ejection fraction, increase contractility, decrease in left ventricular end systolic dimension without wall motion abnormalities consistent with a normal response to exercise. Conclusions: 1. Nondiagnostic EKG portion secondary to mild baseline abnormalities. 2. Normal echo response to exercise without evidence of inducible ischemia. 3. Poor exercise capacity. 4. Normal EF 60%. MTDD
== END 2021-03-17 21:10 | disposition home or self-care (01) ==
LOC: EC 00:49 → 6NMEDSUR 04:47
PROVIDERS: ADMIT Family Medicine; ATTEND Family Medicine
DX: R07.2 Precordial pain (principal); E11.9 Type 2 diabetes mellitus without complications; I10 Essential (primary) hypertension; E78.5 Hyperlipidemia, unspecified; R00.0 Tachycardia, unspecified; Z20.822 Contact with and (suspected) exposure to COVID-19; R19.7 Diarrhea, unspecified; E66.9 Obesity, unspecified; Z68.41 Body mass index [BMI] 40.0-44.9, adult; F41.9 Anxiety disorder, unspecified; Z79.4 Long term (current) use of insulin; Z79.84 Long term (current) use of oral hypoglycemic drugs; Z88.0 Allergy status to penicillin; Z88.1 Allergy status to other antibiotic agents; Z90.49 Acquired absence of other specified parts of digestive tract; Z87.891 Personal history of nicotine dependence; Z83.3 Family history of diabetes mellitus; Z82.49 Family history of ischemic heart disease and other diseases of the circulatory system
CPT/HCPCS: 99285; 96365; 96366; 36415; 93005; 93306; 93351; 85379; 80053; 84443; 82150; 83690; 83735; 84484; 85025; 85610; 85730; 87635; 71046; 71275; G0378; J3475; Q9967

== ENCOUNTER → 2021-03-23 | Outpatient (CLI) | payer OTHER ==
[2021-03-23 12:42] LABS: African American GFR (CKD) 135.8 (60.0-200.0); Albumin 4.1 g/dL (3.8-4.9); Albumin/Globulin Ratio 1.67 (1.60-3.17); Anion Gap 13.5 mmol/L (10.00-18.00); BUN/Creat Ratio 24.9 Ratio (12.00-20.00); Blood Urea Nitrogen 12.9 mg/dL (9.0-27.0); Calcium 9.9 mg/dL (8.7-10.3); Carbon Dioxide 27.2 mmol/L (20.0-27.5); Globulin 2.5 g/dL (1.6-3.3); Non-African American GFR(CKD) 117.2 (60.0-200.0); Total Bilirubin 0.4 mg/dL (0.30-1.20); Total Protein 6.6 g/dL (6.2-8.2)
== END | disposition home or self-care (01) ==
LOC: LABWHC1 06:57
PROVIDERS: ATTEND Physician Assistant
DX: R74.8 Abnormal levels of other serum enzymes (principal); R19.7 Diarrhea, unspecified
CPT/HCPCS: 36415; 80053; 82150; 83690

== ENCOUNTER → 2022-02-02 | Outpatient (CLI) | payer BC ==
--- NOTE | 2022-02-02 09:32 | MM ---
Reason for Exam: Screening (asymptomatic). Last mammogram was performed 2 year(s) and 3 month(s) ago. Patient History: Menarche at age 14. Patient has no children. Hormonal Contraceptives, from age 20 until age 24. 02/22/2018, Benign Core Biopsy on the left side. 08/11/2017, Benign Core Biopsy on the right side. 08/11/2017, Benign Core Biopsy on the left side. 08/11/2017, Benign Core Biopsy on the left side. Maternal grandmother had breast cancer. Paternal aunt had breast cancer, age 50. Paternal aunt had breast cancer, age 40. Paternal aunt had breast cancer, age 52. Risk Values: Xochilt 5 year model risk: 2.3%. NCI Lifetime model risk: 16.7%. Prior Study Comparison: 02/22/2018 Left Diagnostic Mammogram, [facility]. 08/27/2018 Bilateral Diagnostic Mammogram, [facility]. 10/15/2019 Bilateral Diagnostic Mammogram, [facility]. Tissue Density: The breast tissue is heterogeneously dense. This may lower the sensitivity of mammography. Findings: Analyzed By CAD. There is no suspicious group of microcalcifications or new suspicious mass in either breast. Overall Assessment: Negative, BI-RAD 1 Management: Screening Mammogram of both breasts in 1 year. A clinical breast exam by your physician is recommended on an annual basis and results should be correlated with mammographic findings. [facility] will attempt to contact patient to return for supplemental views and ultrasound if indicated. Electronically signed and approved by: Gio Felder DO
== END | disposition home or self-care (01) ==
LOC: RADMAMWWP 07:02
PROVIDERS: ATTEND Family Medicine
DX: Z12.31 Encounter for screening mammogram for malignant neoplasm of breast (principal); Z80.3 Family history of malignant neoplasm of breast
CPT/HCPCS: 77063; 77067

== ENCOUNTER 2023-02-19 10:53 | Emergency (ER) | payer BC, OTHER ==
[2023-02-19 11:20] VITALS: BP 182/94; PULSE 124; RESP 20; TEMP 99
[2023-02-19] MEDS ORDERED: KETOROLAC 15 MG/ML 1 ML VIAL IM STA (11:34)
--- NOTE | 2023-02-19 12:03 | XR ---
EXAMINATION TYPE: XR shoulder complete 3 views RT DATE OF EXAM: 02/19/2023 Comparison: None Clinical History: 47-year-old female with pain Findings: AC joint is congruent and intact. Subacromial space preserved. There are some vague densities along the superior margin of the glenoid on both Standing AP view. The exact etiology is unclear. Minimal spurring at the inferior humeral head. No acute fracture, subluxation, dislocation is seen. Impression: 1. Some faint densities along the superior margin of the glenoid. The exact etiology is unclear. Give n the location, consider possibility of labral injury or injury at the long head biceps anchor. Gout is also a possibility. 2. Otherwise, no acute osseous abnormality seen.
--- NOTE | 2023-02-19 12:08 | ED ---
Extremity Problem HPI - General Chief complaint: Extremity Problem,Nontraumatic Stated complaint: R shoulder injury Time Seen by Provider: 02/19/23 11:20 Source: patient, RN notes reviewed Mode of arrival: ambulatory Limitations: no limitations - History of Present Illness Initial comments: Patient is a 47-year-old female presented ER with chief complaint of right shoulder pain. She states it started on Monday, . She states since then she is having pain with flexion of her elbow. She also endorses mild tingling sensation down her arm with movement. Patient denies any known injuries. - Related Data Home Medications Medication Instructions Recorded Confirmed Atorvastatin [Lipitor] 20 mg PO QAM 08/08/17 03/17/21 Insulin Degludec [Tresiba 60 units SQ W/SUPPER 08/08/17 03/17/21 Flextouch U-100] Lisinopril-Hctz 10-12.5 mg 1 tab PO BID 08/08/17 03/17/21 [Zestoretic 10-12.5] FLUoxetine HCL [PROzac] 40 mg PO QAM 03/17/21 03/17/21 Metoprolol Succinate (ER) [Toprol 25 mg PO QAM 03/17/21 03/17/21 Xl] Allergies Allergy/AdvReac Type Severity Reaction Status Date / Time amoxicillin [From Augmentin] Allergy Rash/Hives Verified 02/19/23 11:15 azithromycin [From Zithromax] Allergy Rash/Hives Verified 02/19/23 11:15 clavulanic acid Allergy Rash/Hives Verified 02/19/23 11:15 [From Augmentin] Review of Systems ROS Statement: Those systems with pertinent positive or pertinent negative responses have been documented in the HPI. ROS Other: All systems not noted in ROS Statement are negative. Past Medical History Past Medical History: Diabetes Mellitus, Hyperlipidemia, Hypertension Additional Past Medical History / Comment(s): PCOS History of Any Multi-Drug Resistant Organisms: None Reported Past Surgical History: Adenoidectomy, Cholecystectomy Additional Past Surgical History / Comment(s): bilateral breast biopsy august 11, 2017 x 3 sites-all benign. Past Anesthesia/Blood Transfusion Reactions: No Reported Reaction Past Psychological History: Anxiety Smoking Status: Former smoker Past Alcohol Use History: None Reported Past Drug Use History: None Reported - Past Family History Father Family Medical History: Cancer, Hypertension Additional Family Medical History / Comment(s): OF NOW 6 YEARS IN REMISSION OF TOUNGE, Mother Family Medical History: Diabetes Mellitus General Exam Limitations: no limitations General appearance: alert, in no apparent distress Neck exam: Present: normal inspection. Absent: tenderness, meningismus, lymphadenopathy Respiratory exam: Present: normal lung sounds bilaterally. Absent: respiratory distress, wheezes, rales, rhonchi, stridor Cardiovascular Exam: Present: regular rate, normal rhythm, normal heart sounds. Absent: systolic murmur, diastolic murmur, rubs, gallop, clicks Extremities exam: Present: other (Right bicipital groove tenderness. Pain with flexion of elbow. There is also pain with flexion and extension of shoulder. 2+ right radial pulse. Sensation is intact. No rashes, erythema or ecchymosis noted.) Neurological exam: Present: alert, oriented X3, CN II-XII intact Psychiatric exam: Present: normal affect, normal mood Course Vital Signs 02/19/23 11:10 Temperature 99.0 F Pulse Rate 124 H Respiratory 20 Rate Blood Pressure 182/94 O2 Sat by Pulse 96 Oximetry Medical Decision Making - Medical Decision Making Was pt. sent in by a medical professional or institution (, PA, CHIEF HOSPITAL ADMINISTRATOR, urgent care, hospital, or half-way...) When possible be specific @ -No Did you speak to anyone other than the patient for history (EMS, parent, family, police, friend...)? What history was obtained from this source @ -Family Did you review nursing and triage notes (agree or disagree)? Why? @ -I reviewed and agree with nursing and triage notes Were old charts reviewed (outside hosp., previous admission, EMS record, old EKG, old radiological studies, urgent care reports/EKG's, half-way records)? Report findings @ -No old charts were reviewed Differential Diagnosis (chest pain, altered mental status, abdominal pain women, abdominal pain men, vaginal bleeding, weakness, fever, dyspnea, syncope, headache, dizziness, GI bleed, back pain, seizure, CVA, palpatations, mental health, musculoskeletal)? @ -Differential Musculoskeletal: Muscular strain, contusion, ligament sprain, fracture, arthritis, septic arthritis, bursitis, cellulitis, muscle spasm, nerve compression, DVT, arterial occlusion, herpes zoster, electrolyte abnormality, tumor.... This is not meant to be in all inclusive list EKG interpreted by me (3pts min.). @ -None X-rays interpreted by me (1pt min.). @ -Right shoulder x-ray shows some faint densities along the superior margin of the glenoid. Possibly gout. There is no other osseous abnormalities noted. CT interpreted by me (1pt min.). @ -None done U/S interpreted by me (1pt. min.). @ -None done What testing was considered but not performed or refused? (CT, X-rays, U/S, labs)? Why? @ -None What meds were considered but not given or refused? Why? @ -None Did you discuss the management of the patient with other professionals (professionals i.e. , PA, CHIEF HOSPITAL ADMINISTRATOR, lab, RT, psych nurse, social media marketing manager, image scientist, teacher, staff electronic warfare officer, case fitter)? Give summary @ -No Was smoking cessation discussed for >3mins.? @ -No Was critical care preformed (if so, how long)? @ -No Were there social determinants of health that impacted care today? How? (Homelessness, low income, unemployed, alcoholism, drug addiction, transportation, low edu. Level, literacy, decrease access to med. care, [place] [facility], rehab)? @ -No Was there de-escalation of care discussed even if they declined (Discuss DNR or withdrawal of care, Hospice)? DNR status @ -No What co-morbidities impacted this encounter? (DM, HTN, Smoking, COPD, CAD, Cancer, CVA, ARF, Chemo, Hep., AIDS, mental health diagnosis, sleep apnea, morbid obesity)? @ -None Was patient admitted / discharged? Hospital course, mention meds given and route, prescriptions, significant lab abnormalities, going to OR and other pertinent info. @ -Discharge. Patient is a 47-year-old female presented ER with chief complaint of right shoulder pain. Upon examination, patient's vitals were stable. Physical exam was significant for tenderness to bicipital groove and pain with flexion of the elbow. 2+ right radial pulse. Sensation was intact. Patient received IM Toradol for pain control in the ER with improvement. Right shoulder x-ray showed faint densities along the superior margin of the glenoid possibly gout. There is no other acute osseous abnormality seen. I discussed with patient to take Motrin for pain control and to decrease inflammation. Return parameters were discussed. Patient was discharged stable condition with follow-up to PCP. Patient advised patient to follow-up with orthopedics if symptoms persist. She expressed understanding and agreement with care plan. Undiagnosed new problem with uncertain prognosis? @ -No Drug Therapy requiring intensive monitoring for toxicity (Heparin, Nitro, Insulin, Cardizem)? @ -No Were any procedures done? @ -No Diagnosis/symptom? @ -Right shoulder pain/ biceps tendinitis Acute, or Chronic, or Acute on Chronic? @ -Acute Uncomplicated (without systemic symptoms) or Complicated (systemic symptoms)? @ -Uncomplicated Side effects of treatment? @ -No Exacerbation, Progression, or Severe Exacerbation? @ -No Poses a threat to life or bodily function? How? (Chest pain, [place], [place], pneumonia, PE, COPD, DKA, ARF, appy, cholecystitis, CVA, Diverticulitis, Homicidal, Suicidal, threat to staff... and all critical care pts) @ -No - Radiology Data Radiology results: report reviewed, image reviewed Disposition Clinical Impression: Biceps tendinitis Disposition: HOME SELF-CARE Condition: Stable Instructions (If sedation given, give patient instructions): Tendinitis (ED) Additional Instructions: Please return to the Emergency Department if symptoms worsen or any other concerns. Is patient prescribed a controlled substance at d/c from ED?: No Referrals: Laura Narayan DO [Primary Care Provider] - 1-2 days Floyd Monterroso MD [STAFF PHYSICIAN] - 1-2 days Time of Disposition: 12:34
== END 2023-02-19 12:57 | disposition home or self-care (01) ==
LOC: EC 10:53
DX: M75.22 Bicipital tendinitis, left shoulder (principal); E11.9 Type 2 diabetes mellitus without complications; E78.5 Hyperlipidemia, unspecified; I10 Essential (primary) hypertension; F41.9 Anxiety disorder, unspecified; Z87.891 Personal history of nicotine dependence; Z88.0 Allergy status to penicillin; Z88.1 Allergy status to other antibiotic agents; Z79.4 Long term (current) use of insulin; Z79.899 Other long term (current) drug therapy
CPT/HCPCS: 73030; 99283; 96372; J1885

== ENCOUNTER 2023-06-27 09:02 | Day surgery (SDC) | payer BC ==
[~2023-06-27 09:02] MED LIST: LACTATED RINGERS 1,000 ML IV SCH; LIDOCAINE 1% (10MG/ML) FOR IV START INTRADERMA PRN
[2023-06-27] MEDS: LACTATED RINGERS 1,000 ML IV ONE (09:24)
[2023-06-27 09:43] LABS: Glucose,Whole Blood 122 mg/dL (70-110)
[2023-06-27 10:10] VITALS: TEMP 98
[2023-06-27] MEDS ORDERED: PROPOFOL 10 MG/ML 20 ML VIAL IV ONE (10:18)
[2023-06-27] MEDS ORDERED: LIDOCAINE 1% INJ 10MG/ML (20 ML MDV) ONE (10:18)
--- NOTE | 2023-06-27 10:52 | P.PCN ---
Date of Procedure: 06/27/23 Procedure(s) Performed: BRIEF HISTORY: Patient is a 48-year-old pleasant White femalescheduled for an elective colonoscopy as a part of Screening for colon cancer. PROCEDURE PERFORMED: Colonoscopy with snare polyp rectum PREOPERATIVE DIAGNOSIS:Screening for colon cancer IV sedation per Anesthesia. PROCEDURE: After informed consent was obtained, the patient, was brought into the endoscopy unit. IV sedation was administered by Anesthesia under continuous monitoring. Digital rectal examination was normal. Initially the Olympus CF-160 flexible video colonoscope was then inserted in the rectum, gradually advanced into the cecum without any difficulty. Careful examination was performed as the scope was gradually being withdrawn. Ileocecal valve and the appendiceal orifice were visualized and appeared normal. Prep was excellent. Mucosa of the cecum, ascending colon, transverse colonAppeared normal. In the descending colon there were 2 polyps measuring 5 mm and 6 mm in size both of which were removed by cold snare polypectomy. Rest of the, descending colon, sigmoid colon, and rectum appeared normal.In the proximal rectum there was a 1 cm polyp removed by snare polypectomy. Retroflexion was performed in the rectum and no lesions were seen. The patient tolerated the procedure well. IMPRESSION: 5 mm and 6 mm descending colon polyp status post polypectomy 1 cmrectal polyp status post-polyp Snare polypectomy RECOMMENDATIONS: Findings of this examination were discussed with the patient As well as her family. She was advised to follow with the biopsy result. If the biopsy result adenoma she can have a repeat colonoscopy in 3 years..
[2023-06-27 11:44] VITALS: BP 156/89; PULSE 89; RESP 16
== END 2023-06-27 11:32 | disposition home or self-care (01) ==
LOC: ORWHC2ENDO 09:02
PROVIDERS: ATTEND Internal Medicine Gastroenterology
DX: Z12.11 Encounter for screening for malignant neoplasm of colon (principal); D12.4 Benign neoplasm of descending colon; D12.8 Benign neoplasm of rectum; Z79.899 Other long term (current) drug therapy; Z88.1 Allergy status to other antibiotic agents; Z88.0 Allergy status to penicillin; I10 Essential (primary) hypertension; G47.33 Obstructive sleep apnea (adult) (pediatric); E11.9 Type 2 diabetes mellitus without complications; F32.A Depression, unspecified; F12.90 Cannabis use, unspecified, uncomplicated; Z79.84 Long term (current) use of oral hypoglycemic drugs; Z98.890 Other specified postprocedural states
CPT/HCPCS: 81025; 88305; 45385; J2001; J2704

== ENCOUNTER → 2024-05-30 | Outpatient (CLI) | payer OTHER ==
--- NOTE | 2024-05-31 07:35 | MM ---
Reason for Exam: Screening (asymptomatic). Last screening mammogram was performed 12 month(s) ago. Patient History: Menarche at age 14. Patient has no children. Hormonal Contraceptives, from age 20 until age 24. 02/22/2018, Benign Core Biopsy on the left side. 08/11/2017, Benign Core Biopsy on the right side. 08/11/2017, Benign Core Biopsy on the left side. 08/11/2017, Benign Core Biopsy on the left side. Maternal grandmother had breast cancer. Paternal aunt had breast cancer, age 50. Paternal aunt had breast cancer, age 40. Paternal aunt had breast cancer, age 52. Risk Values: Xochilt 5 year model risk: 2.3%. NCI Lifetime model risk: 16.0%. Prior Study Comparison: 10/15/2019 Bilateral Diagnostic Mammogram, [facility]. 02/02/2022 Bilateral MG 3D screening mammo w/cad, [facility]. 05/15/2023 Bilateral MG 3D screening mammo w/cad, [facility]. Tissue Density: The breasts are heterogeneously dense, which may obscure small masses. Findings: Analyzed By CAD. Mammotome biopsy clips in the left breast are redemonstrated. There is a stable 8 mm oval circumscribed mass in the left breast medial aspect middle depth. There is a 10 mm round circumscribed mass in the right breast upper aspect that is decreased in size from most recent studies. A few scattered small benign appearing round calcifications are identified bilaterally. No obvious new distortion or suspicious group of microcalcifications in either breast. Overall Assessment: Benign, BI-RAD 2 Management: Screening Mammogram of both breasts in 1 year. Some advise annual bilateral breast ultrasound surveillance in patients with background dense tissue. Patient should continue monthly self-breast exams. A clinical breast exam by your physician is recommended on an annual basis. This exam should not preclude additional follow-up of suspicious palpable abnormalities. Note on Xochilt scores and lifetime risk: 1. A Xochilt score greater than 3% is considered moderate risk. If this is the case, consider specialist referral to assess eligibility for a risk reducing agent. 2. If overall lifetime risk for the development of breast cancer is 20% or higher, the patient may qualify for future screening with alternating mammogram and breast MRI. [facility], Workstation: [email or web address], 05/31/2024 7:32 AM. Electronically signed and approved by: Mahin Tan M.D.
== END | disposition home or self-care (01) ==
LOC: RADMAMWWP 15:43
PROVIDERS: ATTEND Family Medicine
DX: Z12.31 Encounter for screening mammogram for malignant neoplasm of breast (principal); R92.333 Mammographic heterogeneous density, bilateral breasts; Z80.3 Family history of malignant neoplasm of breast
CPT/HCPCS: 77063; 77067